=== PATIENT | male | born 1955 | race Caucasian/White ===

== ENCOUNTER → 2016-10-22 | Outpatient (CLI) | payer MEDICARE, OTHER ==
[~2016-10-22] MED LIST: ACETAMINOPHEN PO; ALBUTEROL17 GM INH; ASPART INSULIN SUBQ; ASPIRIN81 M2 PO; ATENOLOL25 MG PO; BUMEX2 MG PO; DIVALPROEX SOD500 MG PO; DOCUSATE SODIU100 MG PO; FISH OIL 1,0001 EAC1 PO; FISH OIL 1,0001 EAC2 PO; FLEXERIL10 MG PO; HUMULIN N100 U/ML SUBQ; HYDROCODON-ACE1 EAC9 PO; ISOSORBIDE DINI30 MG PO; K-DUR20 ME1 PO; KLONOPIN1 MG PO; LEVEMIR SUBQ; LIPITOR40 MG PO; LYRICA100 MG PO; METFORMIN HCL1000 M2 PO; MORPHINE SULFAT30 M3 PO; NEURONTIN100 MG PO; NOVOLOG100 UNITS/ SUBQ; ORAMORPH SR30 MG PO; OXECTA5 MG PO; PERPHENAZINE8 MG PO; POLYETHYLENE GL90 GM; PROVENTIL INH0.5 ML NEB; QUETIAPINE FUM300 MG PO; ROXICODONE5 MG PO; SEROQUEL300 MG PO; TENORMIN50 MG PO; TOPAMAX50 MG PO; TRIDESILON 0.0515 G2 EXT; TRILAFON4 MG PO; VITAMIN E400 UNI4 PO; ZOLOFT100 MG PO
--- NOTE | ~2016-10-22 | EKG ---
PATIENT: SILKE AMAYA UNIT #: [id number] Ventricular Rate: 81 BPM Atrial Rate: 81 BPM P-R Interval: 140 ms QRS Duration: 88 ms Q-T Interval: 414 ms QTC Calculation(Bezet): 480 ms P [place]: 6 degrees Calculated R [place]: 43 degrees Calculated T [place]: 41 degrees Diagnosis Line: Normal sinus rhythm Diagnosis Line: Nonspecific T wave abnormality Diagnosis Line: Prolonged QT Diagnosis Line: Abnormal ECG Diagnosis Line: No previous ECGs available Diagnosis Line: Confirmed by ARNOLD MCGEE MD ([id number]) on 10/23/2016 Diagnosis Line: 7:14:43 PM INTERPRETING MD: ARELY HUBBARD
[2016-10-22 13:19] LABS: HEMATOCRIT 44.5 % (38.0-50.0); HEMOGLOBIN 14.9 gm/dL (13.0-16.0); MEAN CELL VOLUME 90.4 FL (83-96); MEAN CORPUSCULAR HEMOGLOBIN 30.2 PG (28-34); MEAN CORPUSCULAR HGB CONC 33.4 g/dL (30-36); MEAN PLATELET VOLUME 9.1 FL (6.5-11.5); RED BLOOD COUNT 4.93 X10e (3.90-5.60); WHITE BLOOD COUNT 7.2 X10e3 (4.0-10.5)
[2016-10-22 13:53] LABS: BILIRUBIN,TOTAL 0.5 mg/dL (0.2-2.0); BUN/CREATININE RATIO 7.14; CALCIUM SERUM 9.2 mg/dL (8.4-10.2); CREATININE SERUM 0.7 mg/dL (0.6-1.4); GLOM FILT RATE Estimated 101.9 mL/min (>60); POTASSIUM 3.5 mmol/L (3.5-5.1); PROTEIN TOTAL SERUM 7.3 g/dL (6.0-8.3)
== END | disposition home or self-care (01) ==
LOC: CAMB 12:26
PROVIDERS: Specialist
DX: Z01.818 Encounter for other preprocedural examination (principal); K43.9 Ventral hernia without obstruction or gangrene
CPT/HCPCS: 36415; 80053; 85027; 93005

== ENCOUNTER 2016-10-29 07:48 | Inpatient (IN) | payer MEDICARE, OTHER ==
--- NOTE | ~2016-10-29 | DS ---
Unit #: [id number] #: [id number] Patient: SILKE AMAYA [id number] [address] [address] [id number] MR#: [id number] NAME: SILKE AMAYA ROOM: 469 Age: 61 Sex: M Admission Date: 10/29/2016 : 1955 Discharge Date: 10/31/2016 Attending Physician: Josh Lara M.D. Primary Care Physician: No Primary Care Physician DISCHARGE SUMMARY HISTORY AND EXAM Mr. Allen is a 61-year-old gentleman, who has had multiple previous abdominal surgeries, and he presented to the office with a painful hernia that had been picked up on CT scan by his primary care physician. The hernia was easily palpable. He also had a hard subcutaneous nodule in the right lateral abdominal wall. He is brought in the morning of surgery, where he underwent hernia repair and excision of the abdominal wall nodule. He was admitted to the hospital postoperatively, and observed. His wound and hernia are well repaired and healing without complication. After he regained bowel function, he was able to be advanced to a regular diet and his home medications without difficulty. He is ambulating without difficulty. Laboratories are unremarkable. Today, he will be discharged home in stable condition with instructions to resume his home diet and medications. He may shower. He is to keep the Gokul-Love drain to bulb suction and to follow-up in the office next Friday for drain removal. He was asked to call for an appointment time. The patient does not need any prescriptions, as he is in Pain Management, and has plenty of home pain medications. The patient understood these instructions, and to be discharged home in stable condition. Dictated by... Lora Rivera/nicki TD: 10/31/2016 19:35 JOB #: [id number] Unit #: [id number] #: [id number] Patient: SILKE AMAYA DISCHARGE SUMMARY Page 1 of 1 X Josh Lara MD DISCHARGE SUMMARY
--- NOTE | ~2016-10-29 | BMI ---
[facility] Nutrition Therapy DATE: 10/30/16 Patient: SILKE AMAYA Physician: PAWEL Address: [place] [facility] Room/Bed: [address] [place] [address], Zip: [place] [address] Admit Date: 10/29/16 Date of : [birth year] Height: 5 10.5 Weight: 301 136.9 HIGH BMI NOTE: DX: 61 Y.O. MALE ADMITTED FOR VENTRAL HERNIA ANTHROPOMETRICS: 5'10.5", WT: 301# (137 KG), BMI: 42.6 DIET: REGULAR INTERVENTION: 1. REGULAR DIET RECOMMENDATIONS: 1. RECOMMEND TO CHANGE CURRENT DIET ORDER TO CC+HH TO PROMOTE GRADUAL WEIGHT LOSS TOWARDS HEALTHY BMI (19.0-25.0) OR +/-10%IBW RD WILL F/U PER PROTOCOL Respectfully, KEAGAN BAZZI MS, RD, LD Food and Nutritional Services [facility] cc: client file
--- NOTE | ~2016-10-29 | OR ---
Unit #: [id number] #: [id number] Patient: SILKE AMAYA [id number] [facility] [address] [facility] [place], [place] [address] [id number] MR#: [id number] NAME: SILKE AMAYA ROOM: 469 Date of Procedure: 10/29/2016 Admission Date: 10/29/2016 Surgeon: Josh Lara M.D. : 1955 Attending Physician: Josh Lara M.D. Primary Care Physician: Primary Care Physician No OPERATIVE REPORT PREOPERATIVE DIAGNOSES Incisional ventral hernia and right lateral abdominal wall mass. POSTOPERATIVE DIAGNOSES Incisional ventral hernia and right lateral abdominal wall mass. PROCEDURES PERFORMED 1. Excisional biopsy, 5 cm x 4 cm abdominal wall mass consistent with fatty necrosis from previous injections, placement of Gokul-Love drain. 2. Exploratory laparotomy repair of incisional ventral hernia with Ventralex mesh. ANESTHESIA General endotracheal anesthesia. ESTIMATED BLOOD LOSS 50 mL. INDICATIONS FOR PROCEDURE A 61-year-old gentleman, who has had previous exploratory laparotomy and was complaining of abdominal pain. At the [facility], a CT was obtained. CT revealed an incisional ventral hernia. On examination, he had a palpable mass in the right lateral abdomen that was tender and hard to palpation. DESCRIPTION OF PROCEDURE The patient was admitted to [facility], positively identified, and transported to the operating room, and after induction of general endotracheal anesthesia, he received IV antibiotics per SCIP protocol, prepped and draped in usual sterile fashion. The right lateral abdominal wall mass was excised. It appeared to be a large area of fatty necrosis probably from previous injections. After excision, obtained hemostasis and placed a Gokul-Love drain because of the size of the fatty tissue defect. I closed the soft tissue with a 2-0 Vicryl interrupted suture over the drain and closed the skin with 4-0 nylon interrupted sutures. I then turned my attention to the palpable hernia that was at the level and just below the umbilicus. After incision, I dissected down and identified the hernia sac. I the hernia sac from the surrounding soft tissue, grasped and elevated the hernia sac and opened it sharply and then excised the hernia sac completely from the subcutaneous tissue. The fascia was identified. There was small bowel in the hernia sac, but it was easily reducible. I palpated through the Unit #: [id number] #: [id number] Patient: MONIQUE,SILKE defect and no other defects were noted. A Ventralex patch was placed in the peritoneal cavity and pulled up taut against the anterior abdominal wall. It was secured with multiple 0 Ethibond interrupted sutures around the circumference of the mesh. The fascia was then able to be closed over the mesh. I irrigated and obtained hemostasis, closed the fatty tissue in layers with 2-0 Vicryl interrupted suture. The skin was reapproximated with sterile skin kristopher. Dry sterile dressing was placed. Sponges and needle counts were correct x3. The patient tolerated the procedure well and transported to recovery in stable condition. Findings and postoperative expectations and instructions were discussed with his . Dictated by... Lora Rivera/roshni TD: 10/29/2016 22:55 JOB #: [id number] OPERATIVE REPORT Page 1 of 1 X Josh Lara MD X PROCEDURE OPERATIVE NOTE
[~2016-10-29 07:48] MED LIST changes: -DOCUSATE SODIU100 MG PO; -TENORMIN50 MG PO
[2016-10-30 03:28] LABS: BASOPHIL# 0.1 X10e3 (0-0.3); BASOPHIL% 0.9 % (0-2.5); EOSINOPHIL# 0.2 X10e3 (0-0.7); EOSINOPHIL% 2.7 % (0.0-7.0); HEMATOCRIT 39.9 % (38.0-50.0); LYMPHOCYTE# 1.8 X10e3 (1.0-3.5); LYMPHOCYTE% 22.9 % (17.0-45.0); MEAN CELL VOLUME 92.1 FL (83-96); MEAN CORPUSCULAR HEMOGLOBIN 30.1 PG (28-34); MEAN CORPUSCULAR HGB CONC 32.7 g/dL (30-36); MEAN PLATELET VOLUME 9.1 FL (6.5-11.5); MONOCYTE% 12.7 % (3.0-12.0); NEUTROPHIL# 4.7 X10e3 (1.5-7.1); NEUTROPHIL% 60.8 % (40-75); PLATELET COUNT 164 X10e3 (140-420); RED BLOOD COUNT 4.33 X10e (3.90-5.60); RED CELL DISTRIBUTION WIDTH 13.8 % (11.0-15.5); WHITE BLOOD COUNT 7.8 X10e3 (4.0-10.5)
[2016-10-30 03:29] LABS: DIFF IND NO
[2016-10-30 03:45] LABS: CALCIUM SERUM 8.4 mg/dL (8.4-10.2); CREATININE SERUM 0.9 mg/dL (0.6-1.4); GLOM FILT RATE Estimated 91.9 mL/min (>60); MAGNESIUM 1.7 mg/dL (1.6-3.0); POTASSIUM 4.6 mmol/L (3.5-5.1)
[2016-10-31] MEDS ORDERED: DOCUSATE SODIU100 MG PO (08:15)
[2016-10-31] MEDS ORDERED: NOVOLOG100 UNITS/ SUBQ ×2 (08:18→08:20)
[2016-10-31] MEDS ORDERED: TENORMIN50 MG PO (08:47)
== END 2016-10-31 09:15 | disposition home or self-care (01) | DRG 354 ==
LOC: CSUR 07:48 → CPACUOF 11:50 → C4C 14:39
PROVIDERS: Specialist
PROC: 0WBF0ZX Excision of Abdominal Wall, Open Approach, Diagnostic (ICD-10-PCS; 2016-10-29)
PROC: 0W9F00Z Drainage of Abdominal Wall with Drainage Device, Open Approach (ICD-10-PCS; 2016-10-29)
PROC: 0WUF0JZ Supplement Abdominal Wall with Synthetic Substitute, Open Approach (ICD-10-PCS; principal; 2016-10-29 10:30)
DX: K43.2 Incisional hernia without obstruction or gangrene (principal); Z68.41 Body mass index [BMI] 40.0-44.9, adult; K65.4 Sclerosing mesenteritis; I10 Essential (primary) hypertension; E66.01 Morbid (severe) obesity due to excess calories; I25.2 Old myocardial infarction; Z95.1 Presence of aortocoronary bypass graft; Z85.9 Personal history of malignant neoplasm, unspecified; E11.9 Type 2 diabetes mellitus without complications; Z79.52 Long term (current) use of systemic steroids
CPT/HCPCS: 80048; 82947; 83735; 85025; 87040; 88302; 88304; 94640; 94664; 94760; J0330; J0690; J1170; J1650; J1815; J1885; J2250; J2270; J2405; J2710; J2765; J3010